=== PATIENT | male | born 1950 | race Caucasian/White ===

== ENCOUNTER 2023-02-22 21:52 | Inpatient (IN) | payer MEDICARE, BC ==
[2023-02-22] MEDS ORDERED: Sodium Chloride 0.9% 10 ML Syringe FLUSH PRN ×2 (22:02→22:56)
[2023-02-22] MEDS ORDERED: Sodium Chloride 0.9% 500 ML IV ONE (22:13)
[2023-02-22 22:14] LABS: BASOPHILS ABSOLUTE AUTO 0.03 K/uL (0.00-0.10); BASOPHILS PERCENT AUTO 0.3 % (0.1-1.3); HEMOGLOBIN 11.2 g/dL (12.9-16.9); IMMATURE GRAN ABSOLUTE AUTO 0.04 K/uL (0.00-0.23); IMMATURE GRAN PERCENT AUTO 0.3 % (0.0-0.7); LYMPHOCYTES ABSOLUTE AUTO 0.68 K/uL (0.8-3.3); LYMPHOCYTES PERCENT AUTO 5.8 % (11.4-47.7); MEAN CORPUSCULAR HEMOGLOBIN 32.4 pg (31.6-35.5); MEAN CORPUSCULAR VOLUME 92.5 fL (81.4-99.0); MONOCYTES ABSOLUTE AUTO 0.42 K/uL (0.20-0.90); MONOCYTES PERCENT AUTO 3.6 % (3.3-12.6); NEUTROPHILS ABSOLUTE AUTO 10.54 K/uL (1.0-7.6); PLATELET COUNT,PLT 166 K/uL (130-375); RED BLOOD CELL COUNT 3.46 M/uL (4.14-5.76); WHITE BLOOD CELL COUNT,WBC 11.7 K/uL (3.2-11.0)
[2023-02-22] MEDS ORDERED: Acetaminophen 500 MG Tab PO ONE (22:30)
[2023-02-22] MEDS ORDERED: Doxycycline 100 MG in Sodium Chloride 0.9% 100 ML IV ONE (22:32)
[2023-02-22] MEDS ORDERED: cefTRIAXone 2 GM in Sodium Chloride 0.9% 50 ML IV ONE (22:32)
[2023-02-22 22:36] LABS: A/G RATIO 0.7 (1.2-2.2); ALANINE AMINOTRANSFERASE,ALT 53 U/L (12-78); ALKALINE PHOSPHATASE 117 U/L (46-116); ASPARTATE AMNIOTRANSFERASE,AST 34 U/L (15-37); BILIRUBIN TOTAL 3.2 mg/dL (0.2-1.0); BLOOD UREA NITROGEN,BUN 12 mg/dL (7-18); CALCIUM 8.9 mg/dL (8.5-10.1); CARBON DIOXIDE,CO2 24 mmol/L (21-32); CHLORIDE,CL 93 mmol/L (100-108); CREATININE 1.1 mg/dL (0.8-1.3); EST CRCL DRUG DOSING (CG) 72.65 mL/min; ESTIMATED GFR 72 mL/min (>60); GLUCOSE RANDOM 143 mg/dL (74-106); PROTEIN TOTAL,TP 7.2 g/dL (6.4-8.2); SODIUM,NA 129 mmol/L (140-148)
[2023-02-22 22:40] LABS: CORONAVIRUS COVID-19 NAA NEGATIVE (NEGATIVE); INFLUENZA A NAA NEGATIVE (NEGATIVE); INFLUENZA B NAA NEGATIVE (NEGATIVE); RESPIRATORY SYNCYTIAL VIR NAA NEGATIVE (NEGATIVE)
[2023-02-22 22:42] LABS: LACTIC ACID 1.1 mmol/L (0.4-2.0)
[2023-02-22 22:45] LABS: CARBOXYHEMOGLOBIN 2.1 % (0.0-1.6); METHEMOGLOBIN 0.9 %; O2 SATURATION ARTERIAL 94.4 % (95.0-98.0); OXYHEMOGLOBIN 91.6 %; PCO2 ARTERIAL 30.7 mmHg (35.0-42.0); TOTAL HEMOGLOBIN 10.8 g/dL (13.5-18.0)
[2023-02-22 22:47] LABS: BICARBONATE,ARTERIAL 21.8 mmol/L (22.0-26.0)
[2023-02-22 22:48] LABS: BASE EXCESS ARTERIAL -0.9 mm/L
[2023-02-22] MEDS ORDERED: Magnesium Sulfate/Water 2 GM in Premix Bag 1 BAG IV ONE (22:51)
[2023-02-22] MEDS ORDERED: Diltiazem 25 MG/5 ML SDV IVPUSH ONE (23:56)
[2023-02-23] MEDS: Diltiazem 100 MG in Sodium Chloride 0.9% 100 ML IV SCH ×3 (00:31→13:17)
[2023-02-23] MEDS ORDERED: Sodium Chloride 0.9% 1,000 ML IV SCH (01:45)
[2023-02-23] MEDS ORDERED: Metoprolol Tartrate 25 MG Tab PO SCH (01:45)
[2023-02-23] MEDS: Levofloxacin/Dextrose 5%-Water 750 MG in Premix Bag 1 BAG IV SCH (02:00)
[2023-02-23] MEDS ORDERED: Ibuprofen 600 MG Tab PO PRN (02:30)
[2023-02-23] MEDS ORDERED: Magnesium Hydroxide 400 MG/5 ML Susp 30 ML Cup PO PRN (02:30)
[2023-02-23] MEDS ORDERED: Ondansetron 4 MG/2 ML SDV IV PRN (02:30)
[2023-02-23] MEDS ORDERED: Sennosides/Docusate Sodium 50-8.6 MG Tab PO PRN (02:30)
[2023-02-23] MEDS ORDERED: Ondansetron 4 MG Tab.DIS PO PRN (02:30)
[2023-02-23] MEDS: Magnesium Sulfate/Water 2 GM in Premix Bag 1 BAG IV SCH ×2 (02:55→08:23)
[2023-02-23] MEDS: Benzonatate 100 MG Cap PO PRN ×2 (03:33→20:01)
[2023-02-23] MEDS: guaiFENesin/Dextromethorphan 100-10 MG/5 ML Soln 10 ML Cup PO PRN ×2 (03:33→20:02)
[2023-02-23] MEDS: Albuterol 0.083% 2.5 MG/3 ML Neb Soln NEB PRN ×2 (03:50→16:16)
[2023-02-23] MEDS ORDERED: Vancomycin 2 GM in Sodium Chloride 0.9% 500 ML IV ONE (04:00)
[2023-02-23] MEDS: Sodium Chloride 0.9% 1,000 ML IV SCH ×3 (05:00→15:55)
[2023-02-23 08:24] LABS: APPEARANCE,URINE CLOUDY (CLEAR); BILIRUBIN,URINE MODERATE (NEGATIVE); COLOR,URINE ORANGE (YELLOW); GLUCOSE,URINE NEGATIVE (NEGATIVE); KETONES,URINE TRACE mg/dL (NEGATIVE); LEUKOCYTE ESTERASE,URINE NEGATIVE (NEGATIVE); NITRITE,URINE POSITIVE (NEGATIVE); OCCULT BLOOD,URINE TRACE-INTACT (NEGATIVE); PH,URINE 5.5 (5.0-8.0); PROTEIN,URINE 100 mg/dL (NEGATIVE); UROBILINOGEN,URINE >=8.0 EU/dL (0.2-1.0)
[2023-02-23 08:33] LABS: AMORPHOUS SEDIMENT,URINE MANY; BACTERIA,URINE FEW; EPITHELIAL CELLS,URINE FEW; MUCUS,URINE NOT SEEN; WBC,URINE 0-5 (0-5)
[2023-02-23] MEDS: Apixaban 5 MG Tab PO SCH ×2 (08:42→20:02)
[2023-02-23] MEDS: Lactobacillus Rhamnosus GG (Probiotic) Cap PO SCH ×2 (08:42→20:02)
[2023-02-23] MEDS: Metoprolol Tartrate 25 MG Tab PO SCH ×2 (09:18→17:27)
[2023-02-23] MEDS: Acetaminophen 325 MG Tab PO PRN ×2 (15:53→20:01)
[2023-02-23] MEDS ORDERED: methylPREDNISolone Sodium Succinate 125 MG/2 ML SDV IVPUSH ONE (17:00)
[2023-02-23] MEDS: Pantoprazole 40 MG Tab.CR PO SCH (17:15)
[2023-02-23] MEDS ORDERED: Diltiazem 180 MG Cap.CD PO ONE (17:30)
[2023-02-23] MEDS: Linezolid 600 MG in Premix Bag 1 BAG IV SCH (18:18)
[2023-02-23] MEDS: cefTRIAXone 2 GM in Sodium Chloride 0.9% 50 ML IV SCH (22:23)
[2023-02-24] MEDS: Levofloxacin/Dextrose 5%-Water 750 MG in Premix Bag 1 BAG IV SCH (02:03)
[2023-02-24] MEDS: Metoprolol Tartrate 25 MG Tab PO SCH ×3 (02:04→21:01)
[2023-02-24] MEDS: Linezolid 600 MG in Premix Bag 1 BAG IV SCH ×2 (05:54→18:14)
[2023-02-24 06:01] LABS: HEMATOCRIT 30.2 % (38.4-49.7); HEMOGLOBIN 10.3 g/dL (12.9-16.9); IMMATURE GRAN ABSOLUTE AUTO 0.08 K/uL (0.00-0.23); IMMATURE GRAN PERCENT AUTO 0.9 % (0.0-0.7); LYMPHOCYTES ABSOLUTE AUTO 0.45 K/uL (0.8-3.3); LYMPHOCYTES PERCENT AUTO 5.3 % (11.4-47.7); MEAN CORPUSCULAR HEMOGLOBIN 31.7 pg (31.6-35.5); MEAN CORPUSCULAR HGB CONC 34.1 g/dL (31.6-35.5); MEAN CORPUSCULAR VOLUME 92.9 fL (81.4-99.0); MONOCYTES ABSOLUTE AUTO 0.28 K/uL (0.20-0.90); MONOCYTES PERCENT AUTO 3.3 % (3.3-12.6); NEUTROPHILS ABSOLUTE AUTO 7.76 K/uL (1.0-7.6); NEUTROPHILS PERCENT AUTO 90.5 % (40.0-78.1); PLATELET COUNT,PLT 149 K/uL (130-375); RED BLOOD CELL COUNT 3.25 M/uL (4.14-5.76); WHITE BLOOD CELL COUNT,WBC 8.6 K/uL (3.2-11.0)
[2023-02-24 06:18] LABS: BLOOD UREA NITROGEN,BUN 18 mg/dL (7-18); CALCIUM 8.5 mg/dL (8.5-10.1); CARBON DIOXIDE,CO2 24 mmol/L (21-32); CHLORIDE,CL 91 mmol/L (100-108); EST CRCL DRUG DOSING (CG) 79.92 mL/min; ESTIMATED GFR 81 mL/min (>60); GLUCOSE RANDOM 221 mg/dL (74-106); POTASSIUM,K 4.5 mmol/L (3.6-5.2); SODIUM,NA 124 mmol/L (140-148)
[2023-02-24 06:26] LABS: ANION GAP 13.5 mmol/L (5.0-14.0); C-REACTIVE PROTEIN > 25.00 mg/dL (0.0-0.3)
[2023-02-24] MEDS: Diltiazem 180 MG Cap.CD PO SCH (08:06)
[2023-02-24] MEDS: Pantoprazole 40 MG Tab.CR PO SCH (08:06)
[2023-02-24] MEDS: Apixaban 5 MG Tab PO SCH ×2 (08:06→21:00)
[2023-02-24] MEDS: Lactobacillus Rhamnosus GG (Probiotic) Cap PO SCH ×2 (08:07→21:00)
[2023-02-24] MEDS: methylPREDNISolone Sodium Succinate 125 MG/2 ML SDV IVPUSH SCH (15:17)
[2023-02-24] MEDS: Calcium Carbonate 500 MG Tab.Chew PO PRN (21:01)
[2023-02-24] MEDS: cefTRIAXone 2 GM in Sodium Chloride 0.9% 50 ML IV SCH (21:01)
[2023-02-25] MEDS: Melatonin 3 MG Tab PO SCH ×2 (00:32→21:10)
[2023-02-25] MEDS: methylPREDNISolone Sodium Succinate 125 MG/2 ML SDV IVPUSH SCH ×2 (00:43→08:08)
[2023-02-25] MEDS: Levofloxacin/Dextrose 5%-Water 750 MG in Premix Bag 1 BAG IV SCH (00:47)
[2023-02-25] MEDS: Sodium Chloride 0.9% 1,000 ML IV SCH (00:52)
[2023-02-25] MEDS: Albuterol 0.083% 2.5 MG/3 ML Neb Soln NEB PRN ×5 (03:38→19:17)
[2023-02-25 04:34] LABS: HEMATOCRIT 29.6 % (38.4-49.7); HEMOGLOBIN 10.4 g/dL (12.9-16.9); MEAN CORPUSCULAR HEMOGLOBIN 32.3 pg (31.6-35.5); MEAN CORPUSCULAR HGB CONC 35.1 g/dL (31.6-35.5); MEAN CORPUSCULAR VOLUME 91.9 fL (81.4-99.0); RED BLOOD CELL COUNT 3.22 M/uL (4.14-5.76); WHITE BLOOD CELL COUNT,WBC 11.9 K/uL (3.2-11.0)
[2023-02-25 04:53] LABS: CALCIUM 8.8 mg/dL (8.5-10.1); CREATININE 0.9 mg/dL (0.8-1.3); EST CRCL DRUG DOSING (CG) 88.8 mL/min
[2023-02-25] MEDS: Linezolid 600 MG in Premix Bag 1 BAG IV SCH ×2 (06:09→18:09)
[2023-02-25] MEDS: Apixaban 5 MG Tab PO SCH ×2 (08:05→21:10)
[2023-02-25] MEDS: Lactobacillus Rhamnosus GG (Probiotic) Cap PO SCH ×2 (08:05→21:10)
[2023-02-25] MEDS: Pantoprazole 40 MG Tab.CR PO SCH (08:05)
[2023-02-25] MEDS: Metoprolol Tartrate 25 MG Tab PO SCH ×2 (08:06→21:10)
[2023-02-25] MEDS: Diltiazem 180 MG Cap.CD PO SCH (08:06)
[2023-02-25] MEDS: Calcium Carbonate 500 MG Tab.Chew PO PRN (08:13)
[2023-02-25] MEDS: Meropenem 1 GM in Sodium Chloride 0.9% 100 ML IV SCH ×2 (09:45→17:33)
[2023-02-25] MEDS: Acetylcysteine 20% 200 MG/ML 4 ML Nebulizer Soln SDV NEB SCH ×4 (09:53→20:15)
[2023-02-25] MEDS ORDERED: Furosemide 20 MG/2 ML VIAL IVPUSH ONE ×2 (10:00→17:00)
[2023-02-25 15:11] LABS: CALCIUM 8.8 mg/dL (8.5-10.1); EST CRCL DRUG DOSING (CG) 79.92 mL/min; POTASSIUM,K 4.7 mmol/L (3.6-5.2)
[2023-02-25 15:13] LABS: ANION GAP 13.7 mmol/L (5.0-14.0)
[2023-02-25] MEDS: methylPREDNISolone Sodium Succinate 40 MG/1 ML SDV IVPUSH SCH (15:55)
[2023-02-25] MEDS: Insulin Lispro 100 Unit/ML 3 ML KwikPen SUBCUT SCH ×2 (16:15→19:34)
[2023-02-25] MEDS: guaiFENesin/Dextromethorphan 100-10 MG/5 ML Soln 10 ML Cup PO PRN (19:16)
[2023-02-25] MEDS: Acetaminophen 325 MG Tab PO PRN (19:17)
[2023-02-25] MEDS: Benzonatate 100 MG Cap PO PRN (19:17)
[2023-02-26] MEDS: methylPREDNISolone Sodium Succinate 40 MG/1 ML SDV IVPUSH SCH ×2 (00:15→07:57)
[2023-02-26] MEDS: Levofloxacin/Dextrose 5%-Water 750 MG in Premix Bag 1 BAG IV SCH (01:43)
[2023-02-26] MEDS: Meropenem 1 GM in Sodium Chloride 0.9% 100 ML IV SCH ×2 (03:34→09:07)
[2023-02-26 04:49] LABS: HEMATOCRIT 27.7 % (38.4-49.7); HEMOGLOBIN 9.6 g/dL (12.9-16.9); MEAN CORPUSCULAR HEMOGLOBIN 31.3 pg (31.6-35.5); MEAN CORPUSCULAR HGB CONC 34.7 g/dL (31.6-35.5); MEAN CORPUSCULAR VOLUME 90.2 fL (81.4-99.0); RED BLOOD CELL COUNT 3.07 M/uL (4.14-5.76); WHITE BLOOD CELL COUNT,WBC 13.7 K/uL (3.2-11.0)
[2023-02-26] MEDS: Linezolid 600 MG in Premix Bag 1 BAG IV SCH (05:17)
[2023-02-26 05:18] LABS: A/G RATIO 0.6 (1.2-2.2); ALANINE AMINOTRANSFERASE,ALT 81 U/L (12-78); ALBUMIN 2.3 g/dL (3.4-5.0); ALKALINE PHOSPHATASE 113 U/L (46-116); ASPARTATE AMNIOTRANSFERASE,AST 42 U/L (15-37); BLOOD UREA NITROGEN,BUN 22 mg/dL (7-18); C-REACTIVE PROTEIN 9.51 mg/dL (0.0-0.3); CALCIUM 8.6 mg/dL (8.5-10.1); CARBON DIOXIDE,CO2 26 mmol/L (21-32); CHLORIDE,CL 87 mmol/L (100-108); CREATININE 0.9 mg/dL (0.8-1.3); ESTIMATED GFR 92 mL/min (>60); GLUCOSE RANDOM 178 mg/dL (74-106); POTASSIUM,K 5.4 mmol/L (3.6-5.2); PROTEIN TOTAL,TP 6.2 g/dL (6.4-8.2)
[2023-02-26 05:23] LABS: ANION GAP 10.4 mmol/L (5.0-14.0); SODIUM,NA 118 mmol/L (140-148)
[2023-02-26] MEDS ORDERED: Sodium Chloride 3% 500 ML IV SCH (05:45)
[2023-02-26] MEDS: Insulin Lispro 100 Unit/ML 3 ML KwikPen SUBCUT SCH ×2 (07:55→11:51)
[2023-02-26] MEDS: Pantoprazole 40 MG Tab.CR PO SCH (07:56)
[2023-02-26] MEDS: Diltiazem 180 MG Cap.CD PO SCH (08:05)
[2023-02-26] MEDS: Apixaban 5 MG Tab PO SCH (08:05)
[2023-02-26] MEDS: Metoprolol Tartrate 25 MG Tab PO SCH (08:05)
[2023-02-26] MEDS: Lactobacillus Rhamnosus GG (Probiotic) Cap PO SCH (08:05)
[2023-02-26] MEDS ORDERED: Furosemide 40 MG/4 ML VIAL IVPUSH ONE (09:00)
[2023-02-26] MEDS: Albuterol 0.083% 2.5 MG/3 ML Neb Soln NEB PRN (09:42)
== END 2023-02-26 13:45 | DRG 189 ==
LOC: JP.ED 21:52 → JP.ICU 02-23 01:35
PROVIDERS: ADMIT Internal Medicine; ATTEND Internal Medicine
PROC: 4A13XR1 Monitoring of Arterial Saturation, Peripheral, External Approach (ICD-10-PCS; 2023-02-23)
PROC: 5A0935A Assistance with Respiratory Ventilation, Less than 24 Consecutive Hours, High Flow/Velocity Cannula (ICD-10-PCS; principal; 2023-02-25)
PROC: 5A09357 Assistance with Respiratory Ventilation, Less than 24 Consecutive Hours, Continuous Positive Airway Pressure (ICD-10-PCS; 2023-02-25)
DX: A41.9 Sepsis, unspecified organism (principal); R65.20 Severe sepsis without septic shock; J96.01 Acute respiratory failure with hypoxia; J18.9 Pneumonia, unspecified organism; K83.1 Obstruction of bile duct; E87.1 Hypo-osmolality and hyponatremia; I48.0 Paroxysmal atrial fibrillation; F10.20 Alcohol dependence, uncomplicated; E87.70 Fluid overload, unspecified; E78.5 Hyperlipidemia, unspecified; J45.909 Unspecified asthma, uncomplicated; D64.9 Anemia, unspecified; Z99.81 Dependence on supplemental oxygen; Z99.89 Dependence on other enabling machines and devices; Z11.52 Encounter for screening for COVID-19; E83.42 Hypomagnesemia; R00.0 Tachycardia, unspecified; Z79.01 Long term (current) use of anticoagulants; Z79.899 Other long term (current) drug therapy; Z20.822 Contact with and (suspected) exposure to COVID-19
CPT/HCPCS: 0241U; 36415; 36600; 51798; 71045; 71250; 80048; 80053; 81001; 82803; 82947; 83605; 83735; 84145; 84295; 84484; 85025; 85027; 86140; 86612; 87040; 87070; 87205; 93005; 93010; 94640; 94660; 94667; 94668; 96365; 96366; 96367; 96368; 96375; 99222; 99232; 99239; 99285; A9270-GY; J0696; J1815; J1940; J1956; J2020; J2185; J2405; J2920; J2930; J3370; J3475; J3490; J7030; J7040; J7050; J7131